=== PATIENT | female | born 1965 | race Caucasian/White ===

== ENCOUNTER 2018-10-11 13:00 | Emergency (ER) | payer OTHER ==
[2018-10-11 13:15] VITALS: BP 146/76; PULSE 94; TEMP 98.9; BMI 33.1
[2018-10-11] MEDS ORDERED: CEPHALEXIN MONOHYDRATE 500 MG CAPSULE (UD) PO ONE (15:31)
--- NOTE | 2018-10-11 15:32 | PDOC ---
History of Present Illness - General Chief Complaint: Redness To Affected Area Stated Complaint: RIGHT INDEX FINGER INFECTION Time Seen by Provider: 10/11/18 13:25 - History of Present Illness Initial Comments: 10/11/18 15:26 53 F with h/o HTN presents to ED with R 2nd digit pain and swelling. Pt states that she first noticed pain 3 days ago. Since then, the finger has become red and swollen. She denies F/C. Denies pain or swelling in any other digit. Has not injured it. Pt reports that she gets contact dermatitis frequently and often has breaks in her skin, which is likely what caused this. Pt denies any limitation in her ROM of her fingers. Past History - Past Medical History Allergies/Adverse Reactions: Allergies Allergy/AdvReac Type Severity Reaction Status Date / Time sesame oil Allergy Intermediate Swelling Verified 10/11/18 13:05 shellfish derived Allergy Intermediate Swelling Verified 10/11/18 13:05 nuts, dust, cats, mold, seeds Allergy Mild histamine Uncoded 10/11/18 13:05 release TUNA (CANNED) Allergy Unknown Uncoded 10/11/18 13:05 Home Medications: Ambulatory Orders Anastrozole [Arimidex -] 1 mg PO HS 07/30/16 Citalopram Hydrobromide [Citalopram HBr] 40 mg PO HS 07/30/16 Losartan Potassium 25 mg PO HS 07/30/16 Meloxicam 15 mg PO HS 10/11/18 Cancer: Yes (BREAST) COPD: No HTN: Yes - Suicide/Smoking/Psychosocial Hx Smoking History: Never smoked Have you smoked in the past 12 months: No Hx Alcohol Use: No Drug/Substance Use Hx: No Substance Use Type: None Review of Systems - Review of Systems Comments:: 10/11/18 15:28 "GENERAL/CONSTITUTIONAL: No fever or chills. No weakness. HEAD, EYES, EARS, NOSE AND THROAT: No change in vision. No ear pain or discharge. No sore throat. CARDIOVASCULAR: No chest pain, no shortness of breath, no loss of consciousness RESPIRATORY: No cough, wheezing, or hemoptysis. GASTROINTESTINAL: No nausea, vomiting, diarrhea or constipation. GENITOURINARY: No dysuria, frequency, or change in urination. MUSCULOSKELETAL: + R index finger swelling and pain, No neck or back pain. SKIN: No rash NEUROLOGIC: No vertigo, no change in strength/sensation. ENDOCRINE: No increased thirst. No abnormal weight change. HEMATOLOGIC/LYMPHATIC: No anemia, easy bleeding, or history of blood clots. ALLERGIC/IMMUNOLOGIC: No hives or skin allergy. *Physical Exam - Vital Signs Last Vital Signs Temp Pulse Resp BP Pulse Ox 98.9 F 94 H 16 146/76 96 10/11/18 13:03 10/11/18 13:03 10/11/18 13:03 10/11/18 13:03 10/11/18 13:03 - Physical Exam Comments: 10/11/18 15:28 "GENERAL: Awake, alert, and fully oriented, in no acute distress. HEAD: No signs of trauma EYES: PERRLA, EOMI, sclera anicteric, conjunctiva clear ENT: Auricles normal inspection, hearing grossly normal, nares patent, oropharynx clear without exudates. Moist mucosa NECK: Nontender, no stepoffs, Normal ROM, supple, no lymphadenopathy, JVD, or masses LUNGS: Breath sounds equal, clear to auscultation bilaterally. No wheezes, and no crackles HEART: Regular rate and rhythm, normal S1 and S2, no murmurs, rubs or gallops ABDOMEN: Soft, nontender, normoactive bowel sounds. No guarding, no rebound. No masses EXTREMITIES: + R 2nd digit with erythema and induration. Mild swelling. No fluctuance, no drainage, no abscess NEUROLOGICAL: Cranial nerves II through XII intact. 5/5 strength and sensation in all extremities, Normal speech, normal gait, normal cerebellar function SKIN: Warm, Dry, normal turgor, no rashes or lesions noted. Medical Decision Making - Medical Decision Making 10/11/18 15:30 53 F with mild felon of R index finger. No abscess seen on exam. No evidence of tenosynovitis. - Keflex - f/u hand Pt is well appearing, with normal vitals. Clinically stable for DC at this time. I discussed the physical exam findings, ancillary test results and final diagnoses with the patient. I answered all of the patient's questions. The patient was satisfied with the care received and felt comfortable with the discharge plan and treatment plan. The patient agrees to follow up with the primary care physician within 24-72 hours. *DC/Admit/Observation/Transfer Diagnosis at time of Disposition: Felon - Discharge Dispostion Disposition: HOME Condition at time of disposition: Good - Referrals Referrals: Oseas Ybarra MD [Staff Physician] - - Patient Instructions Printed Discharge Instructions: DI for Cellulitis -- Adult Additional Instructions: You have an infection of your fingertip. Take the antibiotics as prescribed to treat it. It may take 48 hours for the antibiotics to have an effect. Follow up with our hand specialist within 1 week for a check up. If you experience worsening swelling, pain, fevers, or any other concerning symptoms, return to the ER immediately. - Post Discharge Activity - Attestations Physician Attestion: 10/11/18 15:34 I, Dr. Nathen Rojo MD, attest that this document has been prepared under my direction and personally reviewed by me in its entirety. I further attest, that it accurately reflects all work, treatment, procedures and medical decision -making performed by me.
[2018-10-11] MEDS ORDERED: CEPHALEXIN MONOHYDRATE 500 MG CAPSULE (UD) ONE (15:37)
== END 2018-10-11 15:45 | disposition home or self-care (01) ==
LOC: FER 13:00
DX: L03.011 Cellulitis of right finger (principal); Z85.3 Personal history of malignant neoplasm of breast; I10 Essential (primary) hypertension
CPT/HCPCS: 99281-25

== ENCOUNTER 2018-12-01 10:21 | Emergency (ER) | payer OTHER ==
[2018-12-01 10:34] VITALS: BP 150/94; PULSE 104; TEMP 99.2; BMI 39.0
[2018-12-01] MEDS ORDERED: SODIUM CHLORIDE FOR INHALATION 3 ML VIAL.NEB IH ONE (10:41)
[2018-12-01] MEDS ORDERED: predniSONE 20 MG TABLET (UD) PO ONE (10:41)
[2018-12-01] MEDS ORDERED: predniSONE 10 MG TABLET (UD) ONE (10:44)
[2018-12-01] MEDS ORDERED: predniSONE 20 MG TABLET (UD) ONE (10:44)
--- NOTE | 2018-12-01 10:49 | PDOC ---
History of Present Illness - General Chief Complaint: Cold Symptoms Stated Complaint: COLD Time Seen by Provider: 12/01/18 10:22 - History of Present Illness Initial Comments: 12/01/18 10:43 53yo F hx HTN (on losartan), asthma (PRN ventolin) presents to the ED with 6 days of nasal congestion, non productive cough, chills, bodyaches, sore throat, and gradual onset global headache. DEnies fevers. Denies CP/SOB, abd pain, urinary sxs, diarrhea, rashes, stiff neck, focal weakness/numbness. Has tried motrin, ventolin for symptoms with mild palliation. +boyfriend with similar sxs , but got better quicker. Pt presented to the ED today because she has a trach dependent son who she does not want to get sick. She requests medication to "knock it out." Got flu vaccine 07/2018. Past History - Past Medical History Allergies/Adverse Reactions: Allergies Allergy/AdvReac Type Severity Reaction Status Date / Time sesame oil Allergy Intermediate Swelling Verified 12/01/18 10:21 shellfish derived Allergy Intermediate Swelling Verified 12/01/18 10:21 nuts, dust, cats, mold, seeds Allergy Mild histamine Uncoded 12/01/18 10:21 release TUNA (CANNED) Allergy Unknown Uncoded 12/01/18 10:21 Home Medications: Ambulatory Orders Anastrozole [Arimidex -] 1 mg PO HS 07/30/16 Citalopram Hydrobromide [Citalopram HBr] 40 mg PO HS 07/30/16 Losartan Potassium 25 mg PO HS 07/30/16 Meloxicam 15 mg PO HS 10/11/18 Atorvastatin Ca [Lipitor] 10 mg PO HS 12/01/18 Prednisone [Prednisone 50 MG TABLETS] 50 mg PO DAILY #4 tablet 12/01/18 Cancer: Yes (BREAST) COPD: No HTN: Yes - Suicide/Smoking/Psychosocial Hx Smoking History: Former smoker Have you smoked in the past 12 months: No If you are a former smoker, when did you quit?: 1999 Information on smoking cessation initiated: No Hx Alcohol Use: No Drug/Substance Use Hx: No Substance Use Type: None Review of Systems - Review of Systems Comments:: 12/01/18 10:50 GENERAL/CONSTITUTIONAL: No fever or chills. No weakness. HEAD, EYES, EARS, NOSE AND THROAT: No change in vision. No ear pain or discharge.+sore throat. GASTROINTESTINAL: No nausea, vomiting, diarrhea or constipation. GENITOURINARY: No dysuria, frequency, or change in urination. CARDIOVASCULAR: No chest pain or shortness of breath. RESPIRATORY: +cough, no wheezing, or hemoptysis. MUSCULOSKELETAL: +bodyaches SKIN: No rash NEUROLOGIC: +headache, no vertigo, loss of consciousness, or change in strength/ sensation. ENDOCRINE: No increased thirst. No abnormal weight change. HEMATOLOGIC/LYMPHATIC: No anemia, easy bleeding, or history of blood clots. ALLERGIC/IMMUNOLOGIC: No hives or skin allergy. *Physical Exam - Vital Signs Last Vital Signs Temp Pulse Resp BP Pulse Ox 99.2 F 104 H 20 150/94 97 12/01/18 10:21 12/01/18 10:21 12/01/18 10:21 12/01/18 10:21 12/01/18 10:21 - Physical Exam Comments: 12/01/18 10:53 GENERAL: Awake, alert, and fully oriented, in no acute distress on cell phone HEAD: No signs of trauma EYES: PERRLA, EOMI, sclera anicteric, conjunctiva clear ENT: Auricles normal inspection, +clear nasal congestion, oropharynx clear without exudates. Moist mucosa. +cobble stoning to posterior OP NECK: Normal ROM, supple, +tender R cervical anterior lymphadenopathy, no JVD, or masses LUNGS: Breath sounds equal, clear to auscultation bilaterally. No wheezes, and no crackles HEART: Regular rate and rhythm, normal S1 and S2, no murmurs, rubs or gallops ABDOMEN: Soft, nontender, normoactive bowel sounds. No guarding, no rebound. No masses EXTREMITIES: Normal range of motion, no edema. No clubbing or cyanosis. No cords, erythema, or tenderness NEUROLOGICAL: Normal speech, cranial nerves intact, equal strength and sensation b/l SKIN: Warm, Dry, normal turgor, no rashes or lesions noted. Moderate Sedation - Procedure Monitoring Vital Signs: Procedure Monitoring Vital Signs Temperature 99.2 F 12/01/18 10:21 Pulse Rate 104 H 12/01/18 10:21 Respiratory Rate 20 12/01/18 10:21 Blood Pressure 150/94 12/01/18 10:21 O2 Sat by Pulse Oximetry (%) 97 12/01/18 10:21 Medical Decision Making - Medical Decision Making 12/01/18 10:55 53yo F presents to the ED with bodyaches, sore throat, headache, cough. Vitals with mild tachycardia to 104, although pt states she is always mildly tachycardic to low 100s and PMD may start her on BB. Exam with well appearing, non toxic patient, +nasal congestion, otherwise no abnormal findings. Likely viral syndrome. Pt states steroids have helped her in the past with the cough and congestion, will trial burst of steroids. WIll also give steroid neb for symptomatic tx and reassess. 12/01/18 11:15 Pt feeling significantly better, requests DC home Well appearing, rpt HR 96 Likely viral syndrome, she will see her PMD in 1-2 days I discussed the physical exam findings, ancillary test results and final diagnoses with the patient. I answered all of the patient's questions. The patient was satisfied with the care received and felt comfortable with the discharge plan and treatment plan. The patient will call their primary care physician within 24 hours to arrange follow-up and will return to the Emergency Department with any new, persistent or worsening symptoms. *DC/Admit/Observation/Transfer Diagnosis at time of Disposition: Viral syndrome, Cough, Myalgia - Discharge Dispostion Disposition: HOME Condition at time of disposition: Stable Decision to Admit order: No - Prescriptions Prescriptions: Prednisone [Prednisone 50 MG TABLETS] 50 mg PO DAILY #4 tablet - Referrals - Patient Instructions Printed Discharge Instructions: DI for Cough -- Adult Additional Instructions: Follow up with your primary doctor within 1-2 days. Return to the emergency department if you have any new, worsening, or concerning symptoms. It was a pleasure taking care of you today, feel better soon! Dr. Nelson - Post Discharge Activity - Attestations Physician Attestion: 12/01/18 11:51 I, Dr. Helene Nelson MD, attest that this document has been prepared under my direction and personally reviewed by me in its entirety. I further attest, that it accurately reflects all work, treatment, procedures and medical decision -making performed by me.
== END 2018-12-01 11:28 | disposition home or self-care (01) ==
LOC: FER 10:21
PROC: 3E0337Z Introduction of Electrolytic and Water Balance Substance into Peripheral Vein, Percutaneous Approach (ICD-10-PCS; principal; 2018-12-01)
DX: B34.9 Viral infection, unspecified (principal); R05 Cough; M79.10 Myalgia, unspecified site; J45.909 Unspecified asthma, uncomplicated; I10 Essential (primary) hypertension; Z85.3 Personal history of malignant neoplasm of breast; Z87.891 Personal history of nicotine dependence
CPT/HCPCS: 99282-25

== ENCOUNTER 2019-10-17 13:11 | Emergency (ER) | payer OTHER ==
[2019-10-17 13:32] VITALS: BP 117/83; PULSE 84; TEMP 98.3; BMI 42.0
--- NOTE | 2019-10-17 14:02 | PDOC ---
History of Present Illness - General Chief Complaint: Pain Stated Complaint: RIGHT HAND PAin Time Seen by Provider: 10/17/19 13:22 History Source: Patient Exam Limitations: No Limitations - History of Present Illness Initial Comments: 10/17/19 13:59 54y F pmhx htn, hl, dm, carpal tunnel (noncompliant with splint) presents with complaint of R hand pain localized to the R thenar eminence. Patient states that she was in her usual state of health until this morning when she woke up she noticed pain to the base of right thumb. Patient denies any recent traumas or injuries, States this feels different from her typical carpal tunnel. She denies any associated numbness or tingling, fevers, chills, known injuries. ROS: Constitutional - no reported Fever, Chills, Abd/GI: no reported, nausea, vomiting Musculskelatal - +R hand pain no reported back pain, joint swelling skin - no reported bruising, erythema, rash neurological: no reported numbness, focal weakness, tingling, ataxia, Physicial Exam: GENERAL: The patient is awake, alert, and fully oriented, Nontoxic - in no acute distress. HEAD: Normocephalic, atraumatic. EXTREMITIES: No focal tenderness at the Proximal portion of the feet right thenar eminence Without any palpable masses, erythema, induration, fluctuance. Normal range of motion, no edema. Normal range of motion of the right hand and wrist and thumb No signs of fracture/dislocation, suspect Possible Tendinitis/inflammation Past History - Past Medical History Allergies/Adverse Reactions: Allergies Allergy/AdvReac Type Severity Reaction Status Date / Time sesame oil Allergy Intermediate Swelling Verified 10/17/19 13:13 shellfish derived Allergy Intermediate Swelling Verified 10/17/19 13:13 TUNA (CANNED) Allergy Intermediate Hives Uncoded 10/17/19 13:13 nuts, dust, cats, mold, seeds Allergy Mild histamine Uncoded 10/17/19 13:13 release Home Medications: Ambulatory Orders Anastrozole [Arimidex -] 1 mg PO HS 07/30/16 Citalopram Hydrobromide [Citalopram HBr] 20 mg PO HS 07/30/16 Losartan Potassium 25 mg PO HS 07/30/16 Metformin HCl [Glucophage] 500 mg PO BID 10/17/19 Metoprolol Succinate 50 mg PO DAILY 10/17/19 Simvastatin 5 mg PO DAILY 10/17/19 Tramadol HCl 50 mg PO QID PRN #10 tablet MDD 4 10/17/19 Asthma: Yes Cancer: Yes (BREAST) COPD: No Diabetes: Yes HTN: Yes Hypercholesterolemia: Yes - Psycho Social/Smoking Cessation Hx Smoking History: Former smoker Have you smoked in the past 12 months: No If you are a former smoker, when did you quit?: 16 years Information on smoking cessation initiated: No Hx Alcohol Use: Yes (social) Drug/Substance Use Hx: No Substance Use Type: None *Physical Exam - Vital Signs Last Vital Signs Temp Pulse Resp BP Pulse Ox 98.3 F 84 16 117/83 97 10/17/19 13:12 10/17/19 13:12 10/17/19 13:12 10/17/19 13:12 10/17/19 13:12 Discharge - Discharge Information Problems reviewed: Yes Clinical Impression/Diagnosis: Hand pain, right Condition: Stable Disposition: HOME - Admission No - Follow up/Referral Referrals: Nathen Licea MD [Staff Physician] - Irais Coyne MD [Non Staff, Medical] - - Patient Discharge Instructions Patient Printed Discharge Instructions: DI for Hand Pain Additional Instructions: Return to the emergency department immediately with ANY new, persistent or worsening symptoms. Day 400 mg of ibuprofen every 4 hours for the next 2 days, take tramadol as needed for severe pain. Do not drive if you are taking the tramadol As may make you sleepy. You MUST call and follow up with your primary doctor in 3-4 days for further evaluation of your symptoms. Results were discussed with you. Please make sure your doctor reviews the results of your emergency evaluation. Your Emergency Department visit is not complete without a follow up with your doctor. Print Language: GABONESE - Post Discharge Activity
[2019-10-17] MEDS ORDERED: traMADol HCL 50 MG TABLET PO ONE (14:13)
[2019-10-17] MEDS ORDERED: traMADol HCL 50 MG TABLET ONE (14:27)
== END 2019-10-17 14:34 | disposition home or self-care (01) ==
LOC: FER 13:11
DX: M79.641 Pain in right hand (principal); I10 Essential (primary) hypertension; E11.9 Type 2 diabetes mellitus without complications; E78.00 Pure hypercholesterolemia, unspecified; J45.909 Unspecified asthma, uncomplicated; Z91.19 Patient's noncompliance with other medical treatment and regimen; G56.01 Carpal tunnel syndrome, right upper limb; Z91.013 Allergy to seafood; Z91.048 Other nonmedicinal substance allergy status; Z79.84 Long term (current) use of oral hypoglycemic drugs; Z85.3 Personal history of malignant neoplasm of breast; Z87.891 Personal history of nicotine dependence
CPT/HCPCS: 99282-25